=== PATIENT | female | born 1940 | race Caucasian/White ===

== ENCOUNTER → 2017-09-10 | Outpatient (CLI) | payer MEDICARE, MEDICAID ==
[~2017-09-10] MED LIST: ACET-2031 PO; ACET-2708 PO; ALPR-451 PO; ASCO-504 PO; ASPI-1471 PO; ATEN-1 PO; B12/1TAB PO; BARIUM SULFATE 176 GM BTL PO ONE; BARIUM SULFATE 340 GM POWD ONE; DILT120C4 PO; ESTR0.9T14 PO; LISI-362 PO; LISI5TAB25 PO; METH1TAB40 PO; OMEP40CA48 PO; ROSU5TAB8 PO; SULF-197 PO; TRAM-420 PO
--- NOTE | 2017-09-10 17:34 | RADIOLOGY IMAGING REPORT ---
FACILITY: [facility] PATIENT NAME: Amanda Victoria : 1940 MR: [id number] V: [id number] EXAM DATE: ORDERING PHYSICIAN: MICHELLE POLO TECHNOLOGIST: Location: [facility] Patient: Amanda Victoria : 1940 Visit/Account:[id number] Date of Sevice: 09/10/2017 Exam type: UPPER GI W/SMALL BOWEL SERIES History: Abdomen pain after eating increasing fluid Comparison: None. Findings: Double contrast upper GI series was performed with thick and thin barium and air contrast. There Is a small hiatal hernia and a large amount of gastroesophageal reflux. There is mild narrowing at the lower esophageal sphincter. There is a paucity of gastric folds present area there are two divertic josh in the third portion of the duodenum. Barium was followed throughout the remainder the normal-appearing small bowel to the unremarkable ter tg ileum. The mucosal pattern appeared unremarkable. There is no evidence of bowel dilatation or extrinsic mass effect. Transit time to the right-sided colon was 30 minutes. Incidentally noted is marked elevation right hemidiaphragm and a large calcified gallstone The fluoroscopy dose area product was 1289.56 micro-Mobley per meter squared IMPRESSION: 1. Small hiatal hernia with a large amount of gastroesophageal reflux and mild narrowing at the lowe r esophageal sphincter A paucity of gastric folds are noted. 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
== END ==
LOC: RAD 01:49
PROVIDERS: ATTEND Surgery
DX: K44.9 Diaphragmatic hernia without obstruction or gangrene (principal); K21.9 Gastro-esophageal reflux disease without esophagitis; K22.2 Esophageal obstruction; K80.20 Calculus of gallbladder without cholecystitis without obstruction; K57.10 Diverticulosis of small intestine without perforation or abscess without bleeding
CPT/HCPCS: 74245

== ENCOUNTER 2017-09-25 03:12 | Day surgery (SDC) | payer MEDICARE, MEDICAID ==
[2017-09-25] VITALS (8 sets, daily range): BP systolic 138–161; BP diastolic 66–77
[~2017-09-25] VITALS: Ht 154.9 cm; Wt 68.9 kg
[~2017-09-25 03:12] MED LIST changes: -BARIUM SULFATE 176 GM BTL PO ONE; -BARIUM SULFATE 340 GM POWD ONE
[2017-09-25] MEDS ORDERED: PROPOFOL EMUL(*) 10MG/ML 20 ML 20 ML ONE ×2 (07:08→11:17)
[2017-09-25] MEDS ORDERED: LIDOCAINE/SOD BICARB 8.4% SYR ID ONE (09:00)
[2017-09-25] MEDS ORDERED: NORMOSOL R SOLN(*) 1000 ML BAG 1,000 ML IV PRN (09:00)
--- NOTE | 2017-09-25 11:54 | Short(Outpt) Discharge Summary ---
Discharge Summary Reason for Hosp/Final Diag: (1) Upper abdominal pain Status: Chronic Hospital Course & Plan: EGD with biopsy and colonoscopy with polypectomy x2 completed without problems. (2) Cholelithiasis Status: Chronic (3) Bloating symptom Status: Chronic Departure Discharge to: Home, Self Care Discharge Instructions Home Meds Reported Medications Tramadol Hcl (TRAMADOL HCL) 50 Mg Tablet, 50-100 MG PO Q4-6H Y for prn, TAB 09/09/17 B12/Levomefolate Calcium/B-6 (FOLTX TABLET) 1 Each Tablet, 1 EACH PO, #30 09/09/17 [place]/Me Blue/Ba/Salicy/Hyo (HYOPHEN TABLET) 1 Each Tablet, 1 EACH PO 1-2XD 09/09/17 Omeprazole (OMEPRAZOLE) 40 Mg Capsule.dr, 40 MG PO BID Y for prn, CAP 09/09/17 Lisinopril (LISINOPRIL) 10 Mg Tablet, 10 MG PO QDAY, TAB 09/09/17 Acetaminophen (ACETAMINOPHEN) 325 Mg Tablet, 325 MG PO Q4-6H, TAB 09/09/17 Atenolol (ATENOLOL) 50 Mg Tablet, 1 TAB PO QHS, TAB 07/21/15 Alprazolam (ALPRAZOLAM) 1 Mg Tablet, 0.5 TAB PO QHS, #3 TAB 07/21/15 Rosuvastatin Calcium (CRESTOR) 5 Mg Tablet, 5 MG PO QDAY 07/21/15 Diltiazem Hcl (DILTIAZEM ER) 120 Mg Capsule.er, 120 MG PO DAILY 07/21/15 Aspirin (ASPIR 81) 81 Mg Tablet.dr, 81 MG PO QDAY, TAB 07/21/15 Discontinued Reported Medications Estrogens, Conjugated (PREMARIN) 0.9 Mg Tablet, PO QODAY 07/21/15 Sulfamethoxazole/Trimethoprim (BACTRIM 400-80 MG TABLET) 1 Each Tablet, 1 TAB PO DAILY 07/21/15 Ascorbate Calcium (VITAMIN C) 500 Mg Tablet, PO DAILY 07/21/15 Follow up Referrals: General Surgery - 10/11/17 @ Surgery, General with Michelle Polo Md You have a follow up appointment scheduled with Dr. Polo on 10/11/17, at 12:00pm. Diet: Regular Activity: As Tolerated Special Instructions: Your upper endoscopy and colonoscopy were completed without any problems and your prep was excellent (Good Job!!). Your esophagus, stomach, and duodenum all appear normal and healthy; no ulcers, inflammation, or other problems. I removed 2 polyps from your colon and they were sent to pathology. I didn't find anything concerning or anything that explains your symptoms. I will discuss the results of all these tests when I see you back in my office on 10/11/17, at noon. Problem Qualifiers (1) Cholelithiasis: Cholelithiasis location: gallbladder Cholecystitis presence: without cholecystitis Biliary obstruction: without biliary obstruction Qualified Codes: K80.20 - Calculus of gallbladder without cholecystitis without obstruction MICHELLE POLO MD Sep 25, 2017 11:54
== END 2017-09-25 13:00 | disposition home or self-care (01) ==
LOC: OR 03:12
PROVIDERS: ATTEND Surgery
DX: D12.4 Benign neoplasm of descending colon (principal); D12.5 Benign neoplasm of sigmoid colon; K57.30 Diverticulosis of large intestine without perforation or abscess without bleeding
CPT/HCPCS: 00811; 36415; 43239; 45385; 83516; 87077; 88305; J2704